=== PATIENT | female | born 1945 | race Caucasian/White ===

== ENCOUNTER 2017-05-06 13:05 | Emergency (ER) | payer MEDICARE, BC ==
[2017-05-06] MEDS ORDERED: Lisinopril 20 MG Tab PO SCH (13:15)
--- NOTE | 2017-05-06 13:15 | EDM.PDOC ---
ED HPI GENERAL MEDICAL PROBLEM - General Chief Complaint: General Stated Complaint: Hypertension/chest discomfort Time Seen by Provider: 05/06/17 13:05 Source of Information: Reports: Patient History Limitations: Reports: No Limitations - History of Present Illness INITIAL COMMENTS - FREE TEXT/NARRATIVE: Pt basically claims she has no medical problems and not on any medication.According to patient she went to see her Chiropractor on 05/02/17 when she was told by her Chiropractor that her bottom number of her blood pressure was high. So she bought blood pressure monitor and has been checking her BP twice daily. When she checked her blood pressure today it was 158/ 103mmhg. And she started having chest discomfort around 11 am today, she claims she feels a pressure, no chest pain, no nausea or vomiting, no diaphoresis. The pressure feeling does not get worse with exertion or eating. Pt got concerned and hence came to emergency room. she is presently not in any discomfort, no epigastric pain, belching or burping. Onset: Today Onset Date: 05/06/17 Onset Time: 11:00 Location: Reports: Chest Quality: Reports: Pressure Severity: Mild Improves with: Reports: None Worsens with: Reports: None Associated Symptoms: Denies: Confusion, Chest Pain, Cough, Diaphoresis, Fever/ Chills, Headaches, Nausea/Vomiting, Rash, Seizure, Shortness of Breath, Syncope , Weakness - Related Data Allergies Allergy/AdvReac Type Severity Reaction Status Date / Time No Known Allergies Allergy Verified 11/29/15 15:14 Home Meds: Home Meds NK [No Known Home Meds] 11/29/15 [History] Past Medical History Gastrointestinal History: Reports: GERD 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: - Infectious Disease History Infectious Disease History: Reports: Chicken Pox, Measles, Mumps - Past Surgical History HEENT Surgical History: Reports: None, Tonsillectomy GI Surgical History: Reports: None Social & Family History - Tobacco Use Smoking Status *Q: Never Smoker - Recreational Drug Use Recreational Drug Use: No ED ROS GENERAL - Review of Systems Review Of Systems: See Below Constitutional: Denies: Fever, Chills, Weakness, Fatigue, Night Sweats, Diaphoresis HEENT: Denies: Rhinitis, Throat Pain, Throat Swelling, Vision Change Respiratory: Denies: Shortness of Breath, Wheezing, Pleuritic Chest Pain, Cough , Sputum Cardiovascular: Reports: Blood Pressure Problem. Denies: Chest Pain, Edema, Lightheadedness GI/Abdominal: Denies: Abdominal Pain, Nausea, Vomiting : Denies: Urgency, Urinary Retention Musculoskeletal: Denies: Joint Pain, Joint Swelling Skin: Denies: Bruising, Pruritis, Rash Neurological: Denies: Confusion, Dizziness, Headache, Numbness, Tingling, Weakness ED EXAM, GENERAL - Physical Exam Exam: See Below Exam Limited By: No Limitations General Appearance: Alert, WD/WN, No Apparent Distress, Other (she answers appropriately and not in any discomfrot) Eye Exam: Bilateral Eye: EOMI, PERRL Ears: Normal External Exam, Normal Canal, Hearing Grossly Normal, Normal TMs Ear Exam: Bilateral Ear: Auricle Normal, Canal Normal, TM normal Nose: Normal Inspection, Normal Mucosa, No Blood Throat/Mouth: Normal Inspection, Normal Lips, Normal Teeth, Normal Gums, Normal Oropharynx, Normal Voice, No Airway Compromise Head: Atraumatic, Normocephalic Neck: Normal Inspection, Supple, Non-Tender, Full Range of Motion Respiratory/Chest: No Respiratory Distress, Lungs Clear, Normal Breath Sounds, No Accessory Muscle Use, Chest Non-Tender Cardiovascular: Normal Peripheral Pulses, Regular Rate, Rhythm, No Edema, No Gallop, No JVD, No Murmur, No Rub Peripheral Pulses: 2+: Carotid (L), Carotid (R), Brachial (L), Brachial (R) GI/Abdominal: Normal Bowel Sounds, Soft, Non-Tender, No Organomegaly, No Distention, No Abnormal Bruit, No Mass Extremities: Normal Inspection, Normal Range of Motion, Non-Tender, Normal Capillary Refill, No Pedal Edema Neurological: Alert, Oriented, CN II-XII Intact, Normal Cognition, Normal Gait, Normal Reflexes, No Motor/Sensory Deficits Psychiatric: Normal Affect, Normal Mood Skin Exam: Warm, Intact EKG INTERPRETATION EKG Date: 05/06/17 Rhythm: NSR Rate (Beats/Min): 70 [place]: Normal P-Wave: Present QRS: Normal ST-T: Normal QT: Normal Course - Vital Signs Text/Narrative:: Pt's inital BP was 164/95mmhg. Her EKG was in normal sinus rhythm. Pt was given lisinopril 20mg in the emergency room. Also CBC , CMP and troponin ordered. Pt has remained stable in the emergency room. CBC, CMP are normal. Her troponin is negative. she does not have any more chest discomfort. Pt's repeat BP 30 minutes later is140/83mmhg. Pt reassured that she does have hypertension and needs to stay on lisinopril for now. Advised to monitor her Bp once daily, should gradually improve. Advised to keep pressure under 140/90mmhg. regular exercise and low salt diet advised. Followup in clinic in 1 wk for recheck. - Orders/Labs/Meds Orders: Active Orders 24 hr Category Date Time Status EKG Documentation Completion [RC] ASDIRECTED Care 05/06/17 13:09 Active Lisinopril [Prinivil] Med 05/06/17 13:15 Active 20 mg PO DAILY Medication Orders Lisinopril (Prinivil) 20 mg PO DAILY [facility] Labs: Laboratory Tests 05/06/17 05/06/17 Range/Units 13:15 13:15 WBC 5.4 (4.0-11.0) K/uL RBC 4.54 (3.80-5.80) M/uL Hgb 13.9 (11.5-16.5) g/dL Hct 41.4 (37.0-47.0) % MCV 91 (76-96) fL MCH 30.6 (27.0-32.0) pg MCHC 33.6 (31.0-35.0) g/dL RDW 13.4 (11.0-16.0) % Plt Count 183 (150-500) K/uL MPV 9.5 (6.0-10.0) fL Neut % (Auto) 57.0 (45.0-70.0) % Lymph % (Auto) 29.2 (20.0-40.0) % [place] % (Auto) 11.2 H (3.0-10.0) % Eos % (Auto) 2.4 (1.0-5.0) % Baso % (Auto) 0.2 (0.0-0.5) % Neut # (Auto) 3.07 (2.00-7.50) K/uL Lymph # (Auto) 1.57 (1.50-4.00) K/uL [place] # (Auto) 0.60 (0.20-0.80) K/uL Eos # (Auto) 0.13 (0.04-0.40) K/uL Baso # (Auto) 0.01 L (0.02-0.10) K/uL Sodium 146 H (136-145) mmol/L Potassium 4.2 (3.5-5.1) mmol/L Chloride 107 (98-107) mmol/L Carbon Dioxide 28.4 (21.0-32.0) mmol/L Anion Gap 14.8 (5.0-15.0) mmol/L BUN 18 (8-26) mg/dL Creatinine 0.90 (0.55-1.02) mg/dL Est Cr Clr Drug Dosing TNP Estimated GFR (MDRD) > 60 (>60) MLS/MIN BUN/Creatinine Ratio 20.0 (6-25) Glucose 98 (74-100) mg/dL Calcium 9.2 (8.5-10.1) mg/dL Total Bilirubin 0.3 (0.0-1.0) mg/dL AST 22 (15-37) U/L ALT 35 (12-78) U/L Alkaline Phosphatase 84 (46-116) U/L Troponin I < 0.017 (0.000-0.060) ng/mL Total Protein 7.1 (6.4-8.2) g/dL Albumin 3.6 (3.4-5.0) g/dL Globulin 3.5 (2.2-4.2) g/dL Albumin/Globulin Ratio 1.0 (0.8-2.0) Meds: Medications Generic Name Dose Route Start Last Admin Trade Name Freq PRN Reason Stop Dose Admin Lisinopril 20 mg 05/06/17 13:15 Prinivil PO DAILY [facility] Departure - Departure Time of Disposition: 14:00 Disposition: Home, Self-Care 01 Condition: Good Clinical Impression: Hypertension, Chest discomfort - Discharge Information Instructions: Lisinopril tablets Referrals: PCP,None [Primary Care Provider] - Forms: ED Department Discharge - Problem List & Annotations (1) Chest discomfort SNOMED Code(s): 377233089 Code(s): R07.89 - OTHER CHEST PAIN Status: Acute Current Visit: Yes (2) Hypertension SNOMED Code(s): 47497578 Code(s): I10 - ESSENTIAL (PRIMARY) HYPERTENSION Status: Acute Current Visit: Yes - Problem List Review Problem List Initiated/Reviewed/Updated: Yes - My Orders Last 24 Hours: My Active Orders 05/06/17 13:09 EKG Documentation Completion [RC] ASDIRECTED 05/06/17 13:15 Lisinopril [Prinivil] 20 mg PO DAILY - Assessment/Plan Last 24 Hours: My Active Orders 05/06/17 13:09 EKG Documentation Completion [RC] ASDIRECTED 05/06/17 13:15 Lisinopril [Prinivil] 20 mg PO DAILY Assessment:: New onset HTN with chest discomfort Plan: Pt's inital BP was 164/95mmhg. Her EKG was in normal sinus rhythm. Pt was given lisinopril 20mg in the emergency room. Also CBC , CMP and troponin ordered. Pt has remained stable in the emergency room. CBC, CMP are normal. Her troponin is negative. she does not have any more chest discomfort. Pt's repeat BP 30 minutes later is140/83mmhg. Pt reassured that she does have hypertension and needs to stay on lisinopril for now. Advised to monitor her Bp once daily, should gradually improve. Advised to keep pressure under 140/90mmhg. regular exercise and low salt diet advised. Followup in clinic in 1 wk for recheck.
[2017-05-06] MEDS ORDERED: Lisinopril 20 MG Tab ONE (13:30)
== END 2017-05-06 14:00 | disposition home or self-care (01) ==
LOC: LB.ED 13:05
DX: I10 Essential (primary) hypertension (principal); R07.89 Other chest pain
CPT/HCPCS: 36415; 80053; 84484; 85025; 93005; 99285; A9270; 99284

== ENCOUNTER 2017-06-15 08:42 | Day surgery (SDC) | payer MEDICARE, BC ==
[~2017-06-15 08:42] MED LIST: Metoclopramide 10 MG/2 ML SDV IV PRN; Sodium Chloride 0.9% 1,000 ML IV SCH; Sodium Chloride 0.9% 10 ML Syringe FLUSH PRN
[2017-06-15] MEDS ORDERED: Atropine 0.4 MG/ML SDV ONE (11:20)
[2017-06-15] MEDS ORDERED: Propofol 1,000 MG/100 ML SDV ONE (11:20)
[2017-06-15] MEDS ORDERED: Midazolam 1 MG/ML 5 ML SDV ONE (11:20)
--- NOTE | 2017-06-15 13:24 | OR ---
DATE OF OPERATION: 06/15/2017 PREOPERATIVE DIAGNOSIS: Screening colonoscopy. POSTOPERATIVE DIAGNOSES: 1. Moderate-sized pedunculated rectal polyp. 2. Moderate diverticulosis of the sigmoid colon. OPERATION: Screening colonoscopy with snare polypectomy. COMPLICATIONS: None. DRAINS: None. SPECIMENS: Rectal polyp. ESTIMATED BLOOD LOSS: Minimal. ANESTHESIA: General propofol anesthesia. INDICATION: Ms. Mcmillan is a 71-year-old female, here for screening colonoscopy. She has no prior family history or history of polyps. The above-mentioned procedure was explained. The risks, benefits, complications were explained. The patient understood and agreed, and was brought to the operating room. DESCRIPTION OF PROCEDURE: The patient was brought to the operating room, placed in the left lateral decubitus position on the operating room table. Satisfactory general propofol anesthesia was administered. We began by performing a rectal examination, which was within normal limits. I then placed the endoscope by finger introduction into the rectum and subsequently advanced this to the level of the cecum. The cecum was identified by the appendiceal orifice and the ileocecal valve and cecal strap. Careful evaluation of the mucosa was performed on withdrawal. This revealed some moderate diverticulosis of the sigmoid colon with no evidence of active inflammation and there was a medium-sized approximately 0.5 cm pedunculated polyp within the rectum. This was subsequently snared and removed. Hemostasis appeared satisfactory. Retroflexion was then performed of the rectum, which revealed no other findings. The colon was then subsequently decompressed and the endoscope was withdrawn. The patient tolerated the procedure well. There were no complications. Instrument count was correct. The patient was awoken in the OR and taken to PACU for recovery. Recommend followup colonoscopy in 5 years. KRISTI /[id number]
== END 2017-06-15 15:01 | disposition home or self-care (01) ==
LOC: LB.SDS 08:42
PROVIDERS: ATTEND Surgery
DX: D12.8 Benign neoplasm of rectum (principal); K57.30 Diverticulosis of large intestine without perforation or abscess without bleeding; K21.9 Gastro-esophageal reflux disease without esophagitis; Z79.899 Other long term (current) drug therapy
CPT/HCPCS: J0461; J2250; J2765; J3490; J7040

== ENCOUNTER 2017-11-02 18:04 | Emergency (ER) | payer MEDICARE, BC ==
--- NOTE | 2017-11-02 18:50 | EDM.PDOC ---
ED HPI GENERAL MEDICAL PROBLEM - General Chief Complaint: Abdominal Pain Stated Complaint: abdominal pain Time Seen by Provider: 11/02/17 18:30 Source of Information: Reports: Patient History Limitations: Reports: No Limitations - History of Present Illness INITIAL COMMENTS - FREE TEXT/NARRATIVE: According to patient she claims that she has not had a bowel movement for the past 2 wks now. She has been feeding well until today. Pt has no appetite and has been nauseous. No abdominal bloating. No fever or chills. Pt does have Chronic Constipation all her life. She recently had GI evaluation in [facility], and was started on regime for bowel movement, which sh3 has not started yet. Duration: Week(s): (2), Constant Improves with: Reports: None Worsens with: Reports: None Associated Symptoms: Reports: Nausea/Vomiting. 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: Musculoskeletal History: Reports: Fracture - Infectious Disease History Infectious Disease History: Reports: Chicken Pox, Measles, Mumps - Past Surgical History HEENT Surgical History: Reports: Tonsillectomy GI Surgical History: Reports: Colonoscopy, EGD Musculoskeletal Surgical History: Reports: Other (See Below) Other Musculoskeletal Surgeries/Procedures:: surgery to left hand/wrist Social & Family History - Family History GI: Reports: None ED ROS GENERAL - Review of Systems Review Of Systems: See Below Constitutional: Denies: Fever, Chills HEENT: Denies: Rhinitis, Throat Pain, Throat Swelling Respiratory: Denies: Cough, Sputum Cardiovascular: Denies: Chest Pain, Lightheadedness GI/Abdominal: Reports: Abdominal Pain, Constipation, Nausea. Denies: Black Stool, Bloody Stool, Diarrhea, Vomiting : Denies: Dysuria, Flank Pain Musculoskeletal: Denies: Joint Pain, Joint Swelling Skin: Denies: Pruritis, Rash ED EXAM, GENERAL - Physical Exam Exam: See Below Exam Limited By: No Limitations General Appearance: Alert, WD/WN, No Apparent Distress Eye Exam: Bilateral Eye: EOMI, PERRL Ears: Normal External Exam, Normal Canal, Hearing Grossly Normal, Normal TMs Ear Exam: Bilateral Ear: Auricle Normal, Canal Normal, TM normal Nose: Normal Inspection, Normal Mucosa, No Blood Throat/Mouth: Normal Inspection, Normal Lips, Normal Teeth, Normal Gums, Normal Oropharynx, Normal Voice, No Airway Compromise Head: Atraumatic, Normocephalic Neck: Normal Inspection, Supple, Non-Tender, Full Range of Motion Respiratory/Chest: No Respiratory Distress, Lungs Clear, Normal Breath Sounds, No Accessory Muscle Use, Chest Non-Tender Cardiovascular: Normal Peripheral Pulses, Regular Rate, Rhythm, No Edema, No Gallop, No JVD, No Murmur, No Rub GI/Abdominal: Normal Bowel Sounds, Soft, Non-Tender, No Organomegaly, No Distention, No Abnormal Bruit, Other (There are large irregular firm mass in the left lower quadrant and upper quadrant, the swelling is nontender.) Back Exam: Normal Inspection, Full Range of Motion, NT Extremities: Normal Inspection, Normal Range of Motion, Non-Tender, Normal Capillary Refill, No Pedal Edema Neurological: Alert, Oriented Course - Vital Signs Text/Narrative:: Pt's CBC and CMP are normal. Her AXR upright one view should large amount of stool in the colon. Pt did receive Soap suds enema, and she did have good results. pt did feel better. Pt has had severe constipation all her life. I have placed her on colon regime , Dulcolax 20mg BID for 2 day followed by 10mg BID. Also Started on Senokot 1 tab at bedtime, and miralax 1 tablespoon with 6-8 ozes of water at bedtime. pt should have atleast one bowel movement every 4-6 days to prevent severe constipation. 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 Last Recorded V/S: Last Vital Signs Temp 98.7 F 11/02/17 18:15 Pulse 57 L 11/02/17 18:15 Resp 12 11/02/17 18:15 BP 150/88 H 11/02/17 18:15 Pulse Ox 99 11/02/17 18:15 - Orders/Labs/Meds Orders: Active Orders 24 hr Category Date Time Status Enema [RC] ASDIRECTED Care 11/02/17 18:46 Active Abdomen 1V Upright [CR] Stat Exams 11/02/17 18:22 Taken Labs: Laboratory Tests 11/02/17 11/02/17 Range/Units 18:50 18:50 WBC 9.2 D (4.0-11.0) K/uL RBC 4.29 (3.80-5.80) M/uL Hgb 13.1 (11.5-16.5) g/dL Hct 39.2 (37.0-47.0) % MCV 91 (76-96) fL MCH 30.5 (27.0-32.0) pg MCHC 33.4 (31.0-35.0) g/dL RDW 12.9 (11.0-16.0) % Plt Count 161 (150-500) K/uL MPV 10.3 H (6.0-10.0) fL Neut % (Auto) 67.8 (45.0-70.0) % Lymph % (Auto) 23.5 (20.0-40.0) % [place] % (Auto) 6.8 (3.0-10.0) % Eos % (Auto) 1.7 (1.0-5.0) % Baso % (Auto) 0.2 (0.0-0.5) % Neut # (Auto) 6.22 (2.00-7.50) K/uL Lymph # (Auto) 2.16 (1.50-4.00) K/uL [place] # (Auto) 0.62 (0.20-0.80) K/uL Eos # (Auto) 0.16 (0.04-0.40) K/uL Baso # (Auto) 0.02 (0.02-0.10) K/uL Sodium 140 (136-145) mmol/L Potassium 4.1 (3.5-5.1) mmol/L Chloride 107 (98-107) mmol/L Carbon Dioxide 29.2 (21.0-32.0) mmol/L Anion Gap 7.9 (5.0-15.0) mmol/L BUN 11 D (8-26) mg/dL Creatinine 0.98 (0.55-1.02) mg/dL Est Cr Clr Drug Dosing TNP Estimated GFR (MDRD) 56 L (>60) MLS/MIN BUN/Creatinine Ratio 11.2 (6-25) Glucose 94 (74-100) mg/dL Calcium 8.9 (8.5-10.1) mg/dL Total Bilirubin 0.4 D (0.0-1.0) mg/dL AST 20 (15-37) U/L ALT 23 (12-78) U/L Alkaline Phosphatase 75 (46-116) U/L Total Protein 7.2 (6.4-8.2) g/dL Albumin 3.7 (3.4-5.0) g/dL Globulin 3.5 (2.2-4.2) g/dL Albumin/Globulin Ratio 1.1 (0.8-2.0) Departure - Departure Time of Disposition: 20:00 Disposition: Home, Self-Care 01 Condition: Good Clinical Impression: Constipation - Discharge Information Referrals: PCP,None [Primary Care Provider] - Forms: ED Department Discharge, ED Return to Work/School Form Additional 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 inspection supervisor Senn[place]ot tomorrow and start taking 1 tablet daily at bedtime every day. Begin taking Miralax 1 tablespoon in 6 ounces of water daily at bedtime. Be sure to drink plenty of fluids (water). Follow up with regular provider as needed. Call with any questions. - Problem List & Annotations (1) Constipation SNOMED Code(s): 14006801 Code(s): K59.00 - CONSTIPATION, UNSPECIFIED Status: Acute - Problem List Review Problem List Initiated/Reviewed/Updated: Yes - My Orders Last 24 Hours: My Active Orders 11/02/17 18:22 Abdomen 1V Upright [CR] Stat 11/02/17 18:46 Enema [RC] ASDIRECTED - Assessment/Plan Last 24 Hours: My Active Orders 11/02/17 18:22 Abdomen 1V Upright [CR] Stat 11/02/17 18:46 Enema [RC] ASDIRECTED Assessment:: Constipation chronic Plan: Pt's CBC and CMP are normal. Her AXR upright one view should large amount of stool in the colon. Pt did receive Soap suds enema, and she did have good results. pt did feel better. Pt has had severe constipation all her life. I have placed her on colon regime , Dulcolax 20mg BID for 2 day followed by 10mg BID. Also Started on Senokot 1 tab at bedtime, and miralax 1 tablespoon with 6-8 ozes of water at bedtime. pt should have atleast one bowel movement every 4-6 days to prevent severe constipation. 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
--- NOTE | 2017-11-04 08:40 | CR ---
UPRIGHT ABDOMEN, 11/02/17 There is a large amount of stool present throughout the colon. No evidence of obstruction or ileus. No free air. The patient is status post cholecystectomy. There are radiodensities noted within the pelvis. These may be within the distal sigmoid colon and rectum and may represent ingested pills. They may be related to prior surgery. I do not see any other significant findings. [id number] [facility]
== END 2017-11-02 20:06 | disposition home or self-care (01) ==
LOC: LB.ED 18:04
DX: K59.09 Other constipation (principal); I10 Essential (primary) hypertension; K21.9 Gastro-esophageal reflux disease without esophagitis; Z79.899 Other long term (current) drug therapy
CPT/HCPCS: 36415; 74018; 80053; 85025; 99284

== ENCOUNTER 2021-09-03 18:43 | Emergency (ER) | payer MEDICARE ==
[2021-09-03] MEDS ORDERED: Ketorolac 60 MG/2 ML SDV IM ONE (19:36)
[2021-09-03] MEDS ORDERED: Ketorolac 30 MG/ML SDV IM ONE (19:53)
[2021-09-03] MEDS ORDERED: Acetaminophen 500 MG Tab PO ONE (19:58)
== END 2021-09-03 20:55 | disposition home or self-care (01) ==
LOC: LB.ED 18:43
DX: M25.561 Pain in right knee (principal); I10 Essential (primary) hypertension; K21.9 Gastro-esophageal reflux disease without esophagitis; Z79.899 Other long term (current) drug therapy
CPT/HCPCS: 73562-RT; 96372; 99283; A9270-GY; J1885